=== PATIENT | male | born 1975 | race Caucasian/White ===

== ENCOUNTER 2017-09-22 17:07 | Emergency (ER) | payer MEDICAID ==
[~2017-09-22] VITALS: Ht 170.2 cm; Wt 129.0 kg
[~2017-09-22 17:07] MED LIST: ACET500C5 PO; PENI500T PO
[2017-09-22 17:44] VITALS: Ht 170.2 cm; Wt 129.0 kg
[2017-09-22] MEDS ORDERED: TETRACAINE 0.5% 4 ML OPH LEFT EYE ONE (20:00)
[2017-09-22] MEDS ORDERED: FLUORESCEIN STRIP LEFT EYE ONE (20:00)
[2017-09-22] MEDS ORDERED: CPR3OO3.5 LEFT EYE (20:18)
--- NOTE | 2017-09-23 19:17 | ERD ---
ER Documentation Chief Complaint Chief Complaint red, painful watering, possible metal in left eye x2 days HPI Patient is a 42-year-old male presenting to the emergency department with complaints of redness and watering of his left eye after he believes he got metal in there 2 days ago. He denies any visual changes. He does not wear glasses or contacts. His pain is moderate in severity. It is constant. He denies other symptoms at this time. ROS All systems reviewed and are negative except as per history of present illness. Medications Home Meds Active Scripts Ciprofloxacin Opht* (Ciloxan*) 0.3%-3.5 Opht Oint, 1 APPLIC LEFT EYE TID for 7 Days, #1 BOTTLE Prov:TRE MEADOWS PA-C 09/22/17 Acetaminophen* (Tylophen*) 500 Mg Capsule, 2 CAP PO Q8H Y for PAIN AND OR ELEVATED TEMP, #20 CAP Prov:KERI CORCORAN 08/06/15 Penicillin V Potassium* (Penicillin V K*) 500 Mg Tab, 500 MG PO BID for 7 Days, TAB Prov:KERI CORCORAN 08/06/15 PMhx/Soc Medical and Surgical Hx: pt denies Medical Hx, pt denies Surgical Hx Hx Alcohol Use: Yes (occassional) Hx Substance Use: No Hx Tobacco Use: No Smoking Status: Never smoker Physical Exam Vitals Physical Exam Const: Nontoxic, well-appearing male in no acute distress. Head: Atraumatic Eyes: Significant conjunctival injection noted to the left eye. There is a small piece of metal noted to the mid cornea. There is no periorbital edema or erythema. There is watery drainage from the left eye. ENT: Normal External Ears, Nose and Mouth. Neur: Awake and alert Psych: Normal Mood and Affect Results 24 hrs Current Medications Medications (Trade) Dose Ordered Sig/Armando Route PRN Reason Start Time Stop Time Status Last Admin Dose Admin Fluorescein Sodium (Cnmfu-B-Tfkyq) 1 strip ONCE ONCE LEFT EYE 09/22/17 20:00 09/22/17 20:01 DC Tetracaine HCl (Tetracaine 0.5% Steri-Unit Uyen) 1 drop ONCE ONCE LEFT EYE 09/22/17 20:00 09/22/17 20:01 DC Procedures/MDM 42-year-old male presents to the emergency department with complaints of foreign body to his left eye. Eye Exam w/ Wood's lamp: Visual Acuity: No significant changes. Visual Solorio: Intact in all four quadrants bilaterally Lac ducts/glands: No swelling Lids w/ evertion: Normal, no foreign body Conj/Clarkson: Clear, negative Fluorescein/Mj's Anterior Chamber: Clear Retina exam: No obvious abnormality Foreign Body Removal by me: Location: Left cornea Anesthesia: Tetracaine ophthalmic drops. Technique: Using a diabetic syringe metal was removed excessively, however there were some fragments that were unable to be removed. She is advised to follow-up with the [facility] and he was given a prescription for ciprofloxacin ophthalmic drops. Pt/family in agreement with discharge plan/diagnosis. Pt/family advised to return immediately with any new or worsening symptoms. Follow-up with primary care physician within the next 1-2 days. Disclaimer: Inadvertent spelling and grammatical errors are likely due to EHR/ dictation software use and do not reflect on the overall quality of patient care. Also, please note that the electronic time recorded on this note does not necessarily reflect the actual time of the patient encounter. Departure Diagnosis: Primary Impression: Corneal foreign body with residual material Encounter type: initial encounter Laterality: left Qualified Code: T15.02XA - Foreign body of left cornea with residual material, initial encounter Condition: Fair Patient Instructions: Corneal Foreign Body, Removed Referrals: [facility] Hours: Mon - Fri 9:00 AM - 5:00 PM Additional Instructions: Necesita paul otra joe con [facility]. No mas mejor en 2-3 alas, regresar. Mas peor en 24 horas, regresear rapidamente. Ir a doctor primario en 1-2 alas. Usar instrucciones cuando margi medicamento. TRE MEADOWS PA-C Sep 23, 2017 19:17
--- NOTE | 2017-09-23 19:17 | ERD ---
ER Documentation Chief Complaint Chief Complaint red, painful watering, possible metal in left eye x2 days HPI Patient is a 42-year-old male presenting to the emergency department with complaints of redness and watering of his left eye after he believes he got metal in there 2 days ago. He denies any visual changes. He does not wear glasses or contacts. His pain is moderate in severity. It is constant. He denies other symptoms at this time. ROS All systems reviewed and are negative except as per history of present illness. Medications Home Meds Active Scripts Ciprofloxacin Opht* (Ciloxan*) 0.3%-3.5 Opht Oint, 1 APPLIC LEFT EYE TID for 7 Days, #1 BOTTLE Prov:TRE MEADOWS PA-C 09/22/17 Acetaminophen* (Tylophen*) 500 Mg Capsule, 2 CAP PO Q8H Y for PAIN AND OR ELEVATED TEMP, #20 CAP Prov:KERI CORCORAN 08/06/15 Penicillin V Potassium* (Penicillin V K*) 500 Mg Tab, 500 MG PO BID for 7 Days, TAB Prov:KERI CORCORAN 08/06/15 PMhx/Soc Medical and Surgical Hx: pt denies Medical Hx, pt denies Surgical Hx Hx Alcohol Use: Yes (occassional) Hx Substance Use: No Hx Tobacco Use: No Smoking Status: Never smoker Physical Exam Vitals Physical Exam Const: Nontoxic, well-appearing male in no acute distress. Head: Atraumatic Eyes: Significant conjunctival injection noted to the left eye. There is a small piece of metal noted to the mid cornea. There is no periorbital edema or erythema. There is watery drainage from the left eye. ENT: Normal External Ears, Nose and Mouth. Neur: Awake and alert Psych: Normal Mood and Affect Results 24 hrs Current Medications Medications (Trade) Dose Ordered Sig/Armando Route PRN Reason Start Time Stop Time Status Last Admin Dose Admin Fluorescein Sodium (Ikktm-G-Tqeld) 1 strip ONCE ONCE LEFT EYE 09/22/17 20:00 09/22/17 20:01 DC Tetracaine HCl (Tetracaine 0.5% Steri-Unit Uyen) 1 drop ONCE ONCE LEFT EYE 09/22/17 20:00 09/22/17 20:01 DC Procedures/MDM 42-year-old male presents to the emergency department with complaints of foreign body to his left eye. Eye Exam w/ Wood's lamp: Visual Acuity: No significant changes. Visual Solorio: Intact in all four quadrants bilaterally Lac ducts/glands: No swelling Lids w/ evertion: Normal, no foreign body Conj/Lowes: Clear, negative Fluorescein/Mj's Anterior Chamber: Clear Retina exam: No obvious abnormality Foreign Body Removal by me: Location: Left cornea Anesthesia: Tetracaine ophthalmic drops. Technique: Using a diabetic syringe metal was removed excessively, however there were some fragments that were unable to be removed. She is advised to follow-up with the [facility] and he was given a prescription for ciprofloxacin ophthalmic drops. Pt/family in agreement with discharge plan/diagnosis. Pt/family advised to return immediately with any new or worsening symptoms. Follow-up with primary care physician within the next 1-2 days. Disclaimer: Inadvertent spelling and grammatical errors are likely due to EHR/ dictation software use and do not reflect on the overall quality of patient care. Also, please note that the electronic time recorded on this note does not necessarily reflect the actual time of the patient encounter. Departure Diagnosis: Primary Impression: Corneal foreign body with residual material Encounter type: initial encounter Laterality: left Qualified Code: T15.02XA - Foreign body of left cornea with residual material, initial encounter Condition: Fair Patient Instructions: Corneal Foreign Body, Removed Referrals: [facility] Hours: Mon - Fri 9:00 AM - 5:00 PM Additional Instructions: Necesita paul otra joe con [facility]. No mas mejor en 2-3 alas, regresar. Mas peor en 24 horas, regresear rapidamente. Ir a doctor primario en 1-2 alas. Usar instrucciones cuando margi medicamento. TRE MEADOWS PA-C Sep 23, 2017 19:17
--- NOTE | 2017-09-23 19:17 | ERD ---
ER Documentation Chief Complaint Chief Complaint red, painful watering, possible metal in left eye x2 days HPI Patient is a 42-year-old male presenting to the emergency department with complaints of redness and watering of his left eye after he believes he got metal in there 2 days ago. He denies any visual changes. He does not wear glasses or contacts. His pain is moderate in severity. It is constant. He denies other symptoms at this time. ROS All systems reviewed and are negative except as per history of present illness. Medications Home Meds Active Scripts Ciprofloxacin Opht* (Ciloxan*) 0.3%-3.5 Opht Oint, 1 APPLIC LEFT EYE TID for 7 Days, #1 BOTTLE Prov:TRE MEADOWS PA-C 09/22/17 Acetaminophen* (Tylophen*) 500 Mg Capsule, 2 CAP PO Q8H Y for PAIN AND OR ELEVATED TEMP, #20 CAP Prov:KERI CORCORAN 08/06/15 Penicillin V Potassium* (Penicillin V K*) 500 Mg Tab, 500 MG PO BID for 7 Days, TAB Prov:KERI CORCORAN 08/06/15 PMhx/Soc Medical and Surgical Hx: pt denies Medical Hx, pt denies Surgical Hx Hx Alcohol Use: Yes (occassional) Hx Substance Use: No Hx Tobacco Use: No Smoking Status: Never smoker Physical Exam Vitals Physical Exam Const: Nontoxic, well-appearing male in no acute distress. Head: Atraumatic Eyes: Significant conjunctival injection noted to the left eye. There is a small piece of metal noted to the mid cornea. There is no periorbital edema or erythema. There is watery drainage from the left eye. ENT: Normal External Ears, Nose and Mouth. Neur: Awake and alert Psych: Normal Mood and Affect Results 24 hrs Current Medications Medications (Trade) Dose Ordered Sig/Armando Route PRN Reason Start Time Stop Time Status Last Admin Dose Admin Fluorescein Sodium (Uzcjd-B-Caxbv) 1 strip ONCE ONCE LEFT EYE 09/22/17 20:00 09/22/17 20:01 DC Tetracaine HCl (Tetracaine 0.5% Steri-Unit Uyen) 1 drop ONCE ONCE LEFT EYE 09/22/17 20:00 09/22/17 20:01 DC Procedures/MDM 42-year-old male presents to the emergency department with complaints of foreign body to his left eye. Eye Exam w/ Wood's lamp: Visual Acuity: No significant changes. Visual Solorio: Intact in all four quadrants bilaterally Lac ducts/glands: No swelling Lids w/ evertion: Normal, no foreign body Conj/Stewardson: Clear, negative Fluorescein/Mj's Anterior Chamber: Clear Retina exam: No obvious abnormality Foreign Body Removal by me: Location: Left cornea Anesthesia: Tetracaine ophthalmic drops. Technique: Using a diabetic syringe metal was removed excessively, however there were some fragments that were unable to be removed. She is advised to follow-up with the [facility] and he was given a prescription for ciprofloxacin ophthalmic drops. Pt/family in agreement with discharge plan/diagnosis. Pt/family advised to return immediately with any new or worsening symptoms. Follow-up with primary care physician within the next 1-2 days. Disclaimer: Inadvertent spelling and grammatical errors are likely due to EHR/ dictation software use and do not reflect on the overall quality of patient care. Also, please note that the electronic time recorded on this note does not necessarily reflect the actual time of the patient encounter. Departure Diagnosis: Primary Impression: Corneal foreign body with residual material Encounter type: initial encounter Laterality: left Qualified Code: T15.02XA - Foreign body of left cornea with residual material, initial encounter Condition: Fair Patient Instructions: Corneal Foreign Body, Removed Referrals: [facility] Hours: Mon - Fri 9:00 AM - 5:00 PM Additional Instructions: Necesita paul otra joe con [facility]. No mas mejor en 2-3 alas, regresar. Mas peor en 24 horas, regresear rapidamente. Ir a doctor primario en 1-2 alas. Usar instrucciones cuando margi medicamento. TRE MEADOWS PA-C Sep 23, 2017 19:17
== END 2017-09-22 20:20 | disposition home or self-care (01) ==
LOC: FTE 17:07
DX: T15.02XA Foreign body in cornea, left eye, initial encounter (principal); X58.XXXA Exposure to other specified factors, initial encounter; Y92.9 Unspecified place or not applicable
CPT/HCPCS: 65220; Z7502; Z7610

== ENCOUNTER 2018-01-03 09:06 | Emergency (ER) | END 2018-01-03 11:43 | disposition home or self-care (01) ==